=== PATIENT | male | born 1960 | race African-American/Black ===

== ENCOUNTER 2016-04-11 05:36 | Inpatient (IN) ==
[~2016-04-11 05:36] MED LIST: *HR* LORazepam 1 MG TABLET ONE; *HR* LORazepam 1 MG TABLET PO ONE
--- NOTE | 2016-04-11 05:43 | Emergency Department Note ---
Disposition Clinical Impression: Suicidal ideation Depression Qualifiers: Depression Type: unspecified Qualified Code(s): F32.9 - Major depressive disorder, single episode, unspecified Disposition: Admitted As Inpatient Condition: Fair Time of Disposition: 06:20 Psych HPI - General Stated Complaint: general Time Seen by Provider: 04/11/16 05:40 Source: patient, EMS Mode of arrival: EMS Limitations: no limitations Nursing Notes Reviewed: Yes Vital Signs Reviewed: Yes - History of Present Illness HPI Narrative: 56 old male with past medical history of depression, diabetes, hypercholesterolemia presents with poorly controlled psychiatric disease with suicidal thoughts over the last 2-3 days. He states that he got into an argument with another patient at his psychiatric meeting this week, and since then his depression has been out of control. He has not taken his medicine as he supposed to. He is hearing voices that tell him to harm himself. He has been using crack cocaine as well as alcohol. He has a gun at home and has thought about using it to kill himself. He is also considered hanging himself with a rope that he has a home. He denies thoughts of harming others. He denies recent illness or injury. He denies fever, headache, neck stiffness, chest pain or shortness of breath, GI or symptoms, rashes or edema. Pt complaint: suicidal ideation - Related Data Allergies Allergy/AdvReac Type Severity Reaction Status Date / Time No Known Allergies Allergy Verified 04/11/16 06:09 All systems ED: reviewed and negative except as stated. Past Medical History - Past Medical History Attestation: Yes The following information was validated with the patient. Source: patient Medical history: Reports: diabetes Psychiatric history: Reports: depression Physical Exam - Head Head exam: atraumatic, normocephalic, normal inspection - Eye Eye exam: Present: normal appearance, PERRL, EOMI - ENT ENT exam: normal exam, normal oropharynx, mucous membranes moist - Neck Neck exam: Present: normal inspection, full ROM, trachea midline - Chest Chest inspection: Present: normal inspection, symmetric chest wall rise - Respiratory Respiratory exam: Clear to auscultation bilaterally without wheezes rales or rhonchi Cardiovascular Cardiovascular exam: Present: regular rate, normal rhythm, normal heart sounds - Abdominal Exam Abdominal exam: Present: soft, Non-Tender. Absent: tenderness, distention, guarding, rebound, rigidity - Extremities Exam Extremities exam: Present: normal inspection, full ROM - Expanded Lower Extremity Exam Hip/Pelvis exam: Present: normal inspection, full ROM - Back Exam Back exam: Present: normal inspection, full ROM. Absent: tenderness, CVA tenderness (R), CVA tenderness (L) - Neurological Exam Neurological exam: Present: alert, oriented X3, CN II-XII intact - Psychiatric Psychiatric exam: Anxious - Skin Skin exam: Present: warm, dry, intact, normal color Course - Reevaluation(s) Reevaluation #1: Labs reviewed. We called multiple NH psych facilities, and none of them have open beds. We are obtaining paperwork from the NH to allow us to admit the patient to our inpatient psych facility. He is going to be evaluated by [facility]A here at this time. Time: 06:20 Reevaluation #2: Awaiting evaluation by psychiatric nurse. I anticipate admission to psychiatric unit after evaluation. Patient will be followed by oncoming resident Dr. Hyman. Time: 06:46 Vital Signs Respiratory Rate 16 04/11/16 08:33 Blood Pressure 142/94 04/11/16 08:33 Respiratory Rate 16 04/11/16 08:33 Blood Pressure 142/94 04/11/16 08:33 Oxygen Delivery Oxygen Delivery Room Air Psych - Lab Data Result diagrams: 04/11/16 04:30 Lab Results 04/11/16 04/11/16 04/11/16 Range/Units 04:06 04:30 04:30 Sodium (136-145) mEq/L Potassium (3.5-4.5) mEq/L Chloride (98-109) mEq/L Carbon Dioxide (19-29) mEq/L BUN (8-26) mg/dL Creatinine (0.72-1.25) mg/dL Est GFR ( Amer) (> 60) Est GFR (Non-Af Amer) (> 60) BUN/Creatinine Ratio (6-26) Glucose (70-99) mg/dL POC Glucose 120 H (58-89) Calculated Osmolality (280-300) Calcium (8.6-10.8) mg/dL Total Bilirubin (0.2-1.2) mg/dL Direct Bilirubin (0.0-0.5) mg/dL Indirect Bilirubin (0.0-1.2) mg/dL AST (5-34) Units/L ALT (0-55) Units/L Alkaline Phosphatase (38-126) Units/L Serum Total Protein (6.0-8.3) g/dL Albumin (3.5-5.0) g/dL Globulin (2.4-3.5) g/dL Albumin/Globulin Ratio (1.1-2.2) Urine Color Yellow (Yellow) Urine Clarity Clear (Clear) Urine pH 5.5 (5.0-8.0) pH Units Ur Specific [place] 1.025 (1.010-1.025) Urine Protein 30 H (Neg-Trace) mg/dL Urine Glucose (UA) Normal (Normal) mg/dL Urine Ketones Trace H (Negative) mg/dL Urine Blood Negative (Negative) Urine Nitrite Negative (Negative) Urine Bilirubin Negative (Negative) Urine Urobilinogen Normal (Normal) mg/dL Ur Leukocyte Esterase Negative (Negative) Urine Microscopic WBC 0-3 (0-3) per hpf Ur Squamous Epith Cells Few (None-Few) per lpf Urine Bacteria Few (None-Few) per hpf Urine Mucus Few (Few) Ur Culture Indicated? NO (NO) Salicylates (15-30) mg/dL Urine Opiates Screen Negative (Rhkbhv=251) ng/mL Acetaminophen (10-30) mcg/mL Ur Barbiturates Screen Negative (Gnjxtq=724) ng/mL Ur Phencyclidine Scrn Negative (Cutoff=25) ng/mL Ur Amphetamines Screen Negative (Dtbrax=7328) ng/mL U Benzodiazepines Scrn Negative (Klksed=595) ng/mL Urine Cocaine Screen Positive H (Cutoff= 300) ng/mL U Marijuana (THC) Screen Positive H (Cutoff = 50) ng/mL Ethyl Alcohol (0-10) mg/dL 04/11/16 Range/Units 04:30 Sodium 137 (136-145) mEq/L Potassium 4.0 (3.5-4.5) mEq/L Chloride 104 (98-109) mEq/L Carbon Dioxide 21 (19-29) mEq/L BUN 10 (8-26) mg/dL Creatinine 0.85 (0.72-1.25) mg/dL Est GFR ( Amer) > 60 (> 60) Est GFR (Non-Af Amer) > 60 (> 60) BUN/Creatinine Ratio 12 (6-26) Glucose 116 H (70-99) mg/dL POC Glucose (58-89) Calculated Osmolality 284 (280-300) Calcium 9.2 (8.6-10.8) mg/dL Total Bilirubin 0.4 (0.2-1.2) mg/dL Direct Bilirubin 0.2 (0.0-0.5) mg/dL Indirect Bilirubin 0.2 (0.0-1.2) mg/dL AST 17 (5-34) Units/L ALT 17 (0-55) Units/L Alkaline Phosphatase 71 (38-126) Units/L Serum Total Protein 8.1 (6.0-8.3) g/dL Albumin 4.0 (3.5-5.0) g/dL Globulin 4.1 H (2.4-3.5) g/dL Albumin/Globulin Ratio 1.0 L (1.1-2.2) Urine Color (Yellow) Urine Clarity (Clear) Urine pH (5.0-8.0) pH Units Ur Specific [place] (1.010-1.025) Urine Protein (Neg-Trace) mg/dL Urine Glucose (UA) (Normal) mg/dL Urine Ketones (Negative) mg/dL Urine Blood (Negative) Urine Nitrite (Negative) Urine Bilirubin (Negative) Urine Urobilinogen (Normal) mg/dL Ur Leukocyte Esterase (Negative) Urine Microscopic WBC (0-3) per hpf Ur Squamous Epith Cells (None-Few) per lpf Urine Bacteria (None-Few) per hpf Urine Mucus (Few) Ur Culture Indicated? (NO) Salicylates < 5.0 L (15-30) mg/dL Urine Opiates Screen ([place]=196) ng/mL Acetaminophen < 1.0 L (10-30) mcg/mL Ur Barbiturates Screen (Ahtqyz=962) ng/mL Ur Phencyclidine Scrn (Cutoff=25) ng/mL Ur Amphetamines Screen (Exuikj=1920) ng/mL U Benzodiazepines Scrn (Fwqftg=337) ng/mL Urine Cocaine Screen (Cutoff= 300) ng/mL U Marijuana (THC) Screen (Cutoff = 50) ng/mL Ethyl Alcohol < 10 (0-10) mg/dL Psychiatric Medical Clearance - Medical Clearance Checklist Medical History: No Social History Section defined Current Vitals: Last Vital Signs Resp 16 04/11/16 08:33 BP 142/94 04/11/16 08:33 Psychiatric Lab Panel: Drug Levels and Toxicity 04/11/16 04/11/16 04:30 04:30 Urine Opiates Screen Negative Acetaminophen < 1.0 L Ur Barbiturates Screen Negative Ur Phencyclidine Scrn Negative Ur Amphetamines Screen Negative U Benzodiazepines Scrn Negative Urine Cocaine Screen Positive H U Marijuana (THC) Screen Positive H Ethyl Alcohol < 10 Abnormal Labs: Abnormal lab results Glucose 116 mg/dL (70-99) H 04/11/16 04:30 POC Glucose 120 (58-89) H 04/11/16 04:06 Globulin 4.1 g/dL (2.4-3.5) H 04/11/16 04:30 Albumin/Globulin Ratio 1.0 (1.1-2.2) L 04/11/16 04:30 Urine Protein 30 mg/dL (Neg-Trace) H 04/11/16 04:30 Urine Ketones Trace mg/dL (Negative) H 04/11/16 04:30 Salicylates < 5.0 mg/dL (15-30) L 04/11/16 04:30 Acetaminophen < 1.0 mcg/mL (10-30) L 04/11/16 04:30 Urine Cocaine Screen Positive ng/mL (Cutoff= 300) H 04/11/16 04:30 U Marijuana (THC) Screen Positive ng/mL (Cutoff = 50) H 04/11/16 04:30 Attestation Statement - Attestation Attestation: I examined this patient and my medical decision-making was reviewed with the Resident Physician. I agree with the documented findings, disposition and treatment plan as described except to the extent set forth below. High-risk pt - suicidal ideation/intent with access to firearms, alcohol/ cocaine abuse, prior h/o attempts, psychotic features, middle-aged male. [place] slipped, will required admission. Medicated orally in ED.
[2016-04-11 07:32] LABS: Acetaminophen < 1.0 mcg/mL (10-30); Alanine Aminotransferase 17 Units/L (0-55); Alkaline Phosphatase 71 Units/L (38-126); Aspartate Amino Transferase 17 Units/L (5-34); BUN/Creatinine Ratio 12 (6-26); Bilirubin,Direct 0.2 mg/dL (0.0-0.5); Bilirubin,Indirect 0.2 mg/dL (0.0-1.2); Bilirubin,Total 0.4 mg/dL (0.2-1.2); Blood Urea Nitrogen 10 mg/dL (8-26); Calcium 9.2 mg/dL (8.6-10.8); Carbon Dioxide 21 mEq/L (19-29); Chloride 104 mEq/L (98-109); Ethanol < 10 mg/dL (0-10); Globulin 4.1 g/dL (2.4-3.5); Glucose 116 mg/dL (70-99); Osmolality,Calculated 284 (280-300); Salicylate < 5.0 mg/dL (15-30); Sodium 137 mEq/L (136-145); Total Protein 8.1 g/dL (6.0-8.3); eGFR For African Americans > 60 (> 60); eGFR For Non-African Americans > 60 (> 60)
[2016-04-11 07:48] LABS: Benzodiazepines Screen,Urine Negative ng/mL (Cutoff=200)
[2016-04-11 07:49] LABS: Amphetamine Screen,Urine Negative ng/mL (Cutoff=1000); Barbiturate Screen,Urine Negative ng/mL (Cutoff=200); Cannabinoid Screen,Urine Positive ng/mL (Cutoff = 50); Cocaine Screen,Urine Positive ng/mL (Cutoff= 300); Opiate Screen,Urine Negative ng/mL (Cutoff=300); Phencyclidine Screen,Urine Negative ng/mL (Cutoff=25)
[2016-04-11 07:51] LABS: Bilirubin,Urine Negative (Negative); Clarity,Urine Clear (Clear); Color,Urine Yellow (Yellow); Glucose,Urine (UA) Normal (Normal)
[2016-04-11 07:52] LABS: Blood,Urine Negative (Negative); Ketones,Urine Trace mg/dL (Negative); Leukocyte Esterase,Urine Negative (Negative); Nitrite,Urine Negative (Negative); PH,Urine 5.5 pH Units (5.0-8.0); Protein,Urine 30 mg/dL (Neg-Trace); Specific Gravity,Urine 1.025 (1.010-1.025); Urobilinogen,Urine Normal (Normal); WBC,Urine 0-3 per hpf (0-3)
[2016-04-11 07:53] LABS: Bacteria,Urine Few per hpf (None-Few); Mucus,Urine Few (Few); Squamous Epithelial Cell,Urine Few per lpf (None-Few)
--- NOTE | 2016-04-11 08:27 | Emergency Department Note ---
Disposition Clinical Impression: Suicidal ideation Depression Qualifiers: Depression Type: unspecified Qualified Code(s): F32.9 - Major depressive disorder, single episode, unspecified Disposition: Admitted As Inpatient Condition: Fair Referrals: NO,PCP [Primary Care Provider] - Time of Disposition: 08:27 Psych HPI - General Chief Complaint: ED Psychiatric Symptoms Stated Complaint: SI Time Seen by Provider: 04/11/16 05:40 Source: patient, EMS Mode of arrival: EMS - Related Data Allergies Allergy/AdvReac Type Severity Reaction Status Date / Time No Known Allergies Allergy Verified 04/11/16 06:09 Past Medical History - Past Medical History Medical history: Reports: diabetes Psychiatric history: Reports: depression Physical Exam - General Limitations: no limitations Course - Reevaluation(s) Reevaluation #1: Admitted to 1[facility]. Onward slip filled out. Time: 08:27 Psych - Lab Data Result diagrams: 04/11/16 04:30 Lab Results 04/11/16 04/11/16 04/11/16 Range/Units 04:30 04:30 04:30 Sodium 137 (136-145) mEq/L Potassium 4.0 (3.5-4.5) mEq/L Chloride 104 (98-109) mEq/L Carbon Dioxide 21 (19-29) mEq/L BUN 10 (8-26) mg/dL Creatinine 0.85 (0.72-1.25) mg/dL Est GFR ( Amer) > 60 (> 60) Est GFR (Non-Af Amer) > 60 (> 60) BUN/Creatinine Ratio 12 (6-26) Glucose 116 H (70-99) mg/dL Calculated Osmolality 284 (280-300) Calcium 9.2 (8.6-10.8) mg/dL Total Bilirubin 0.4 (0.2-1.2) mg/dL Direct Bilirubin 0.2 (0.0-0.5) mg/dL Indirect Bilirubin 0.2 (0.0-1.2) mg/dL AST 17 (5-34) Units/L ALT 17 (0-55) Units/L Alkaline Phosphatase 71 (38-126) Units/L Serum Total Protein 8.1 (6.0-8.3) g/dL Albumin 4.0 (3.5-5.0) g/dL Globulin 4.1 H (2.4-3.5) g/dL Albumin/Globulin Ratio 1.0 L (1.1-2.2) Urine Color Yellow (Yellow) Urine Clarity Clear (Clear) Urine pH 5.5 (5.0-8.0) pH Units Ur Specific [place] 1.025 (1.010-1.025) Urine Protein 30 H (Neg-Trace) mg/dL Urine Glucose (UA) Normal (Normal) mg/dL Urine Ketones Trace H (Negative) mg/dL Urine Blood Negative (Negative) Urine Nitrite Negative (Negative) Urine Bilirubin Negative (Negative) Urine Urobilinogen Normal (Normal) mg/dL Ur Leukocyte Esterase Negative (Negative) Urine Microscopic WBC 0-3 (0-3) per hpf Ur Squamous Epith Cells Few (None-Few) per lpf Urine Bacteria Few (None-Few) per hpf Urine Mucus Few (Few) Ur Culture Indicated? NO (NO) Salicylates < 5.0 L (15-30) mg/dL Urine Opiates Screen Negative (Ufpzdw=658) ng/mL Acetaminophen < 1.0 L (10-30) mcg/mL Ur Barbiturates Screen Negative (Cfxrvb=521) ng/mL Ur Phencyclidine Scrn Negative (Cutoff=25) ng/mL Ur Amphetamines Screen Negative (Kfbhqi=5595) ng/mL U Benzodiazepines Scrn Negative (Nwrxky=697) ng/mL Urine Cocaine Screen Positive H (Cutoff= 300) ng/mL U Marijuana (THC) Screen Positive H (Cutoff = 50) ng/mL Ethyl Alcohol < 10 (0-10) mg/dL Psychiatric Medical Clearance - Medical Clearance Checklist Medical History: No Social History Section defined Psychiatric Lab Panel: Drug Levels and Toxicity 04/11/16 04/11/16 04:30 04:30 Urine Opiates Screen Negative Acetaminophen < 1.0 L Ur Barbiturates Screen Negative Ur Phencyclidine Scrn Negative Ur Amphetamines Screen Negative U Benzodiazepines Scrn Negative Urine Cocaine Screen Positive H U Marijuana (THC) Screen Positive H Ethyl Alcohol < 10 Abnormal Labs: Abnormal lab results Glucose 116 mg/dL (70-99) H 04/11/16 04:30 Globulin 4.1 g/dL (2.4-3.5) H 04/11/16 04:30 Albumin/Globulin Ratio 1.0 (1.1-2.2) L 04/11/16 04:30 Urine Protein 30 mg/dL (Neg-Trace) H 04/11/16 04:30 Urine Ketones Trace mg/dL (Negative) H 04/11/16 04:30 Salicylates < 5.0 mg/dL (15-30) L 04/11/16 04:30 Acetaminophen < 1.0 mcg/mL (10-30) L 04/11/16 04:30 Urine Cocaine Screen Positive ng/mL (Cutoff= 300) H 04/11/16 04:30 U Marijuana (THC) Screen Positive ng/mL (Cutoff = 50) H 04/11/16 04:30 Statement of Medical Clearance: I have evaluated the patient, reviewed diagnostic information, and certify that the patient's medical condition is sufficiently stable that transfer to the psychiatric unit does not pose a significant risk of deterioration.
--- NOTE | 2016-04-11 15:34 | Psychiatry History & Physical ---
Date of Encounter: 04/12/16 Time of Encounter: 15:32 History of Present Illness Patient Stated Chief Complaint: Suicidal Medicare Admission Attestation: For traditional Medicare patients the provided hospital inpatient services are reasonable and necessary and in the case of services not specified as inpatient -only under 42 CFR 419.22 (n), that they are appropriately provided as inpatient services in accordance 42 CFR 412.3. For Critical Access Hospital the patient may reasonably be expected to be discharged or transferred to a hospital within 96 hours after admission to the Critical Access Hospital. Admitted From: Emergency Dept History of Present Illness: Mr. Pope is a 56 year old male admitted from the emergency room where he presented as suicidal ideation and depression patient also was intoxicated with cocaine marijuana and benzodiazepine and alcohol. Patient has long history of depression and PTSD and treatment at the [facility] where he is followed by psychiatrists and therapists. Stressors are poor adjustment to his current living situation in [place] have no family or friends in this area. Patient is retired on disability he has significant medical history including diabetes. Patient described suicidal thoughts and hopelessness and also has not been compliant with his medication for the last several months. Past Med Surg Social Fam HX - Past Medical History Medical history: diabetes - Past Psychiatric History Psychiatric history: Reports: depression, PTSD, schizophrenia, previous psychiatric hospitalization Past psychiatric history details: [facility] Medications & Allergies Atorvastatin [Lipitor] 40 mg PO HS 04/11/16 [History] Brimonidine 0.2% [Alphagan] 1 drop RIGHT EYE BID 04/11/16 [History] Lurasidone HCl [Latuda] 60 mg PO DAILY 04/11/16 [History] Melatonin [Melatin] 9 mg PO HS PRN 04/11/16 [History] Metformin HCl [Metformin HCl ER] 1,000 mg PO QPM 04/11/16 [History] Terazosin [Hytrin] 7 mg PO HS 04/11/16 [History] Allergies No Known Allergies Allergy (Verified 04/11/16 06:09) Review of Systems Psychiatric: Reports: depression, suicidal ideation, auditory hallucinations, visual hallucinations, hopelessness Mental Status Exam Patient orientation: Yes Person, Yes Time, Yes Place Level of alertness: Alert Patient appearance: Unkempt, Disheveled Behavior: nervous, anxious, restless Psychomotor activity: Increased Eye contact: Maintains Eye Contact Mood description: Depressed, Anxious, Labile Affect description: constricted, dysphoric, anxious Speech pattern: Normal rate, Normal rhythm, Normal tone, Appropriate Speech volume: Normal Thought process: Linear, Goal Oriented Thought content: Yes Suicidal ideation, Yes Nihilistic delusion, Yes Obsessive thoughts Perceptual disturbances: Yes Auditory hallucinations, Yes Visual hallucinations Attention span: Unable to Focus Memory description: Grossly Intact Patient reliability: Reliable Historian Intelligence estimate: Average Judgment: Limited Insight: Partial Results - Vital Signs Vital signs: Resp BP 16 142/94 04/11/16 08:33 04/11/16 08:33 - Labs Labs: Laboratory Last Values Sodium 137 mEq/L (136-145) 04/11/16 04:30 Potassium 4.0 mEq/L (3.5-4.5) 04/11/16 04:30 Chloride 104 mEq/L (98-109) 04/11/16 04:30 Carbon Dioxide 21 mEq/L (19-29) 04/11/16 04:30 BUN 10 mg/dL (8-26) 04/11/16 04:30 Creatinine 0.85 mg/dL (0.72-1.25) 04/11/16 04:30 Est GFR ( Amer) > 60 (> 60) 04/11/16 04:30 Est GFR (Non-Af Amer) > 60 (> 60) 04/11/16 04:30 BUN/Creatinine Ratio 12 (6-26) 04/11/16 04:30 Glucose 116 mg/dL (70-99) H 04/11/16 04:30 Calculated Osmolality 284 (280-300) 04/11/16 04:30 Calcium 9.2 mg/dL (8.6-10.8) 04/11/16 04:30 Total Bilirubin 0.4 mg/dL (0.2-1.2) 04/11/16 04:30 Direct Bilirubin 0.2 mg/dL (0.0-0.5) 04/11/16 04:30 Indirect Bilirubin 0.2 mg/dL (0.0-1.2) 04/11/16 04:30 AST 17 Units/L (5-34) 04/11/16 04:30 ALT 17 Units/L (0-55) 04/11/16 04:30 Alkaline Phosphatase 71 Units/L (38-126) 04/11/16 04:30 Serum Total Protein 8.1 g/dL (6.0-8.3) 04/11/16 04:30 Albumin 4.0 g/dL (3.5-5.0) 04/11/16 04:30 Globulin 4.1 g/dL (2.4-3.5) H 04/11/16 04:30 Albumin/Globulin Ratio 1.0 (1.1-2.2) L 04/11/16 04:30 Urine Color Yellow (Yellow) 04/11/16 04:30 Urine Clarity Clear (Clear) 04/11/16 04:30 Urine pH 5.5 pH Units (5.0-8.0) 04/11/16 04:30 Ur Specific [place] 1.025 (1.010-1.025) 04/11/16 04:30 Urine Protein 30 mg/dL (Neg-Trace) H 04/11/16 04:30 Urine Glucose (UA) Normal mg/dL (Normal) 04/11/16 04:30 Urine Ketones Trace mg/dL (Negative) H 04/11/16 04:30 Urine Blood Negative (Negative) 04/11/16 04:30 Urine Nitrite Negative (Negative) 04/11/16 04:30 Urine Bilirubin Negative (Negative) 04/11/16 04:30 Urine Urobilinogen Normal mg/dL (Normal) 04/11/16 04:30 Ur Leukocyte Esterase Negative (Negative) 04/11/16 04:30 Urine Microscopic WBC 0-3 per hpf (0-3) 04/11/16 04:30 Ur Squamous Epith Cells Few per lpf (None-Few) 04/11/16 04:30 Urine Bacteria Few per hpf (None-Few) 04/11/16 04:30 Urine Mucus Few (Few) 04/11/16 04:30 Ur Culture Indicated? NO (NO) 04/11/16 04:30 Salicylates < 5.0 mg/dL (15-30) L 04/11/16 04:30 Urine Opiates Screen Negative ng/mL (Smpzqe=431) 04/11/16 04:30 Acetaminophen < 1.0 mcg/mL (10-30) L 04/11/16 04:30 Ur Barbiturates Screen Negative ng/mL (Yfgbwl=064) 04/11/16 04:30 Ur Phencyclidine Scrn Negative ng/mL (Cutoff=25) 04/11/16 04:30 Ur Amphetamines Screen Negative ng/mL (Estuni=2151) 04/11/16 04:30 U Benzodiazepines Scrn Negative ng/mL (Sqwoaq=041) 04/11/16 04:30 Urine Cocaine Screen Positive ng/mL (Cutoff= 300) H 04/11/16 04:30 U Marijuana (THC) Screen Positive ng/mL (Cutoff = 50) H 04/11/16 04:30 Ethyl Alcohol < 10 mg/dL (0-10) 04/11/16 04:30 Assessment and Plan (1) Major depression, recurrent Current visit: Yes Status: Acute Plan: Admit inpatient for safety and stabilization, Close observation, Suicide Precautions per unit protocol, Encourage participation in unit milieu, Group Therapy, Monitor sleep, Monitor appetite Additional Plan: will increase Latuda from 60 mg to 80 mg daily and add Paxil 30 mg daily. Benefits and side effects were discussed with the patient is agreeable. Risks, benefits, side effects, alternatives discussed w/pt: Yes Patient agreeable to treatment: Yes Estimated Length of Stay (Days): 5 Qualifiers: Active/Remission status: currently active Major depression episode severity : severe Psychotic features: with psychotic features Qualified Code(s): F33.3 - Major depressive disorder, recurrent, severe with psychotic symptoms (2) Chronic post-traumatic stress disorder (PTSD) Current visit: Yes Status: Acute Plan: Admit inpatient for safety and stabilization, Close observation, Suicide Precautions per unit protocol, Encourage participation in unit milieu, Group Therapy, Monitor sleep, Monitor appetite Risks, benefits, side effects, alternatives discussed w/pt: Yes Patient agreeable to treatment: Yes (3) Cocaine abuse Current visit: Yes Status: Acute Plan: Admit inpatient for safety and stabilization, Close observation, Suicide Precautions per unit protocol, Encourage participation in unit milieu, Group Therapy, Monitor sleep, Monitor appetite Risks, benefits, side effects, alternatives discussed w/pt: Yes Patient agreeable to treatment: Yes
[2016-04-11] MEDS: Nicotine 2 MG GUM BC PRN (15:45)
[2016-04-11] MEDS ORDERED: MOM Conc 10 ML UD.LIQ PO PRN (17:05)
[2016-04-11] MEDS ORDERED: Haloperidol Lactate 5 MG/ML VIAL IM PRN (17:05)
[2016-04-11] MEDS ORDERED: *HR* LORazepam 2 MG/ML VIAL IM PRN (17:05)
[2016-04-11] MEDS ORDERED: Acetaminophen 325 MG TABLET PO PRN (17:05)
[2016-04-11] MEDS ORDERED: hydrOXYzine pamoate 25 MG CAPSULE PO PRN (17:05)
[2016-04-11] MEDS ORDERED: Mag Hydrox/Al Hydrox/Simeth 30 ML UDC PO PRN (17:05)
[2016-04-11] MEDS: *HR* Metformin 500 MG TABLET PO SCH ×2 (18:00→21:29)
[2016-04-11] MEDS: *HR* LORazepam 1 MG TABLET PO PRN (18:00)
[2016-04-11] MEDS ORDERED: NON-FORMULARY MEDICATION 1 EACH EACH (Metformin Hcl [Metformin Hcl Er] 1,000 MG) PO SCH (18:00)
[2016-04-11] MEDS: traZODone 50 MG TABLET PO PRN (21:29)
[2016-04-12] MEDS: *HR* Metformin 500 MG TABLET PO SCH ×2 (08:30→21:04)
--- NOTE | 2016-04-12 13:19 | Psychiatry Progress Note ---
Date of Encounter: 04/12/16 Time of Encounter: 13:32 Subjective Interval history: Patient is seen for follow-up. Since the ages uncooperative and irritable and focused on going back to the [place] [facility] and social workers trying to soon as it is. Otherwise patient medication was started and adjusted and he continued to display hallucination internally stimulated and continue to be monitored. Review of Systems Psychiatric: Reports: depression, suicidal ideation, auditory hallucinations, visual hallucinations, hopelessness Objective: Exam Patient orientation: Yes Person, Yes Time, Yes Place Level of alertness: Alert Patient appearance: Unkempt, Disheveled Behavior: nervous, anxious, restless Psychomotor activity: Increased Eye contact: Maintains Eye Contact Mood description: Depressed, Anxious, Labile Affect description: constricted, dysphoric, anxious Speech pattern: Normal rate, Normal rhythm, Normal tone, Appropriate Speech volume: Normal Thought process: Linear, Goal Oriented Thought content: Yes Suicidal ideation, Yes Nihilistic delusion, Yes Obsessive thoughts Perceptual disturbances: Yes Auditory hallucinations, Yes Visual hallucinations Judgment: Limited Insight: Partial Results - Vital Signs Vital Signs: Temp Pulse Resp BP 98.8 F 80 18 120/87 04/12/16 09:00 04/12/16 09:00 04/12/16 09:00 04/12/16 09:00 - Labs Labs: Laboratory Results - last 24 hr 04/12/16 07:03 POC Glucose 102 H Assessment and Plan (1) Major depression, recurrent Current visit: Yes Status: Acute Plan: Continue hospitalization, Close observation, Suicide Precautions per unit protocol, Encourage participation in unit milieu, Group Therapy, Monitor sleep, Monitor appetite Risks, benefits, side effects, alternatives discussed w/pt: Yes Patient agreeable to treatment: Yes Qualifiers: Active/Remission status: currently active Major depression episode severity : severe Psychotic features: with psychotic features Qualified Code(s): F33.3 - Major depressive disorder, recurrent, severe with psychotic symptoms (2) Chronic post-traumatic stress disorder (PTSD) Current visit: Yes Status: Acute Plan: Continue hospitalization, Close observation, Suicide Precautions per unit protocol, Encourage participation in unit milieu, Group Therapy, Monitor sleep, Monitor appetite Risks, benefits, side effects, alternatives discussed w/pt: Yes Patient agreeable to treatment: Yes (3) Cocaine abuse Current visit: Yes Status: Acute Plan: Continue hospitalization, Close observation, Suicide Precautions per unit protocol, Encourage participation in unit milieu, Group Therapy, Monitor sleep, Monitor appetite Risks, benefits, side effects, alternatives discussed w/pt: Yes Patient agreeable to treatment: Yes Consult Discharge Plan - Plan Referrals: [facility] [Outside] (You will resume daily groups on discharge. Your follow-up appointment with the psychiatrist will be scheduled by [facility] staff closer to the time of your discharge from the [facility] inpatient unit.)
[2016-04-12] MEDS: *HR* LORazepam 1 MG TABLET PO PRN (14:32)
[2016-04-12] MEDS: Nicotine 2 MG GUM BC PRN (14:38)
[2016-04-12] MEDS: traZODone 50 MG TABLET PO PRN (21:06)
[2016-04-13] MEDS: *HR* Metformin 500 MG TABLET PO SCH ×2 (08:04→21:10)
[2016-04-13] MEDS: Nicotine 2 MG GUM BC PRN (12:11)
--- NOTE | 2016-04-13 12:46 | Psychiatry Progress Note ---
Date of Encounter: 04/13/16 Time of Encounter: 09:20 Subjective Interval history: Patient seen today for follow-up of depression with psychotic features as well as anxiety and cocaine abuse. Patient is extraordinarily irritable with this provider but does report continued suicidal ideations with a plan that he "does not want to talk about." He is aware that he will be transferred to the NH when there is a bed available. Patient is withdrawn to his room and does not interact much with peers and staff. He denies auditory or visual hallucinations and does not appear to be responding during the interview. He does report feeling agitated but this may be related to his drug use. Review of Systems Constitutional: Denies: fever, chills, weakness, weight change Eyes: Denies: eye pain, vision change Ears, Nose, Throat: Denies: ear pain, throat pain, dental pain, hearing loss, congestion Cardiovascular: Denies: chest pain, palpitations, dyspnea on exertion Respiratory: Denies: cough, dyspnea, wheezes Gastrointestinal: Denies: abdominal pain, nausea, vomiting, diarrhea, constipation Musculoskeletal: Denies: joint swelling, joint pain Neurological: Denies: headache, weakness, numbness, memory loss Psychiatric: Reports: depression, anxiety, abnormal sleep pattern, suicidal ideation, difficulty concentrating, hopelessness, irritability, mood swings Objective: Exam Patient orientation: Yes Person, Yes Time, Yes Place Level of alertness: Alert Patient appearance: Unkempt, Disheveled Behavior: nervous, anxious, restless Psychomotor activity: Increased Eye contact: Diverts Contact Mood description: Depressed, Anxious, Labile Affect description: labile, dysphoric, anxious Speech pattern: Slowed Speech volume: Normal Thought process: [place], Slowed Thinking Thought content: Yes Suicidal ideation Perceptual disturbances: No Auditory hallucinations, No Visual hallucinations Judgment: Limited Insight: Minimal Results - Vital Signs Vital Signs: Temp Pulse Resp BP 97.8 F 93 16 115/82 04/13/16 09:00 04/13/16 09:00 04/13/16 09:00 04/13/16 09:00 - Labs Labs: Laboratory Results - last 24 hr 04/13/16 07:48 POC Glucose 109 H Assessment and Plan (1) Major depression, recurrent Current visit: Yes Status: Acute Plan: Continue hospitalization, Close observation, Suicide Precautions per unit protocol, Encourage participation in unit milieu, Group Therapy, Monitor sleep, Monitor appetite Additional Plan: With daily and Paxil or increased yesterday. We will continue to monitor for any side effects but not increase medications today. Encouraged patient to leave his room and interact with peers and staff. Monitor closely for behavior issues. Risks, benefits, side effects, alternatives discussed w/pt: Yes Patient agreeable to treatment: Yes Qualifiers: Active/Remission status: currently active Major depression episode severity : severe Psychotic features: with psychotic features Qualified Code(s): F33.3 - Major depressive disorder, recurrent, severe with psychotic symptoms (2) Chronic post-traumatic stress disorder (PTSD) Current visit: Yes Status: Acute Plan: Continue hospitalization, Close observation, Suicide Precautions per unit protocol, Encourage participation in unit milieu, Group Therapy, Monitor sleep, Monitor appetite Risks, benefits, side effects, alternatives discussed w/pt: Yes Patient agreeable to treatment: Yes (3) Cocaine abuse Current visit: Yes Status: Acute Plan: Continue hospitalization, Close observation, Suicide Precautions per unit protocol, Encourage participation in unit milieu, Group Therapy, Monitor sleep, Monitor appetite Additional Plan: Encourage discontinuation of illicit drug use discussed its effect on patient's mental health. Risks, benefits, side effects, alternatives discussed w/pt: Yes Patient agreeable to treatment: Yes Consult Discharge Plan - Plan Referrals: [facility] [Outside] (You will resume daily groups on discharge. Your follow-up appointment with the psychiatrist will be scheduled by [facility] staff closer to the time of your discharge from the [facility] inpatient unit.)
[2016-04-13] MEDS: *HR* LORazepam 1 MG TABLET PO PRN ×2 (14:40→21:11)
[2016-04-13] MEDS: Melatonin 3 MG TABLET PO PRN (21:10)
[2016-04-14] MEDS: *HR* Metformin 500 MG TABLET PO SCH ×2 (09:12→20:15)
[2016-04-14] MEDS: Nicotine 2 MG GUM BC PRN ×2 (12:00→16:10)
--- NOTE | 2016-04-14 13:07 | Psychiatry Progress Note ---
Date of Encounter: 04/14/16 Time of Encounter: 12:40 Subjective Interval history: Patient is seen today for follow-up and is less irritable today. He states that he is still hearing some voices and he feels like they are harder to make out but it is still affecting his concentration. Patient is trying to leave his room more and stay out in the common areas. He does seem to have some insight that he is tendency to withdrawal as part of the problem and increases his depression and other symptoms. He reports that he slept fitfully last night. He still has intermittent suicidal ideation but no intent or plan today. He is interested in long-term treatment for his drug and alcohol issues. "The short-term programs do not really work for me." Review of Systems Psychiatric: Reports: depression, anxiety, abnormal sleep pattern, suicidal ideation, auditory hallucinations, difficulty concentrating, hopelessness, irritability, mood swings. Denies: visual hallucinations Objective: Exam Patient orientation: Yes Person, Yes Time, Yes Place Level of alertness: Alert Patient appearance: Unkempt, Disheveled Behavior: nervous, anxious, restless Psychomotor activity: Increased Eye contact: Diverts Contact Mood description: Depressed, Anxious, Labile Affect description: congruent with mood, dysphoric, anxious Speech pattern: Slowed Speech volume: Normal Thought process: [place], Slowed Thinking Thought content: Yes Suicidal ideation Perceptual disturbances: Yes Auditory hallucinations, No Visual hallucinations Judgment: Limited Insight: Partial Results - Vital Signs Vital Signs: Temp Pulse Resp BP 98.4 F 84 16 128/87 04/14/16 08:37 04/14/16 08:37 04/14/16 08:37 04/14/16 08:37 - Labs Labs: Laboratory Results - last 24 hr 04/14/16 06:36 POC Glucose 110 H Assessment and Plan (1) Major depression, recurrent Current visit: Yes Status: Acute Plan: Continue hospitalization, Close observation, Suicide Precautions per unit protocol, Encourage participation in unit milieu, Group Therapy, Monitor sleep, Monitor appetite Additional Plan: Continue with Paxil. We will increase Latuda also today. Encouraged patient to leave his room and interact with peers and staff. Monitor closely for behavior issues. Risks, benefits, side effects, alternatives discussed w/pt: Yes Patient agreeable to treatment: Yes Qualifiers: Active/Remission status: currently active Major depression episode severity : severe Psychotic features: with psychotic features Qualified Code(s): F33.3 - Major depressive disorder, recurrent, severe with psychotic symptoms (2) Chronic post-traumatic stress disorder (PTSD) Current visit: Yes Status: Acute Plan: Continue hospitalization, Close observation, Suicide Precautions per unit protocol, Encourage participation in unit milieu, Group Therapy, Monitor sleep, Monitor appetite Additional Plan: Continue current meds. Risks, benefits, side effects, alternatives discussed w/pt: Yes Patient agreeable to treatment: Yes (3) Cocaine abuse Current visit: Yes Status: Acute Plan: Continue hospitalization, Close observation, Suicide Precautions per unit protocol, Encourage participation in unit milieu, Group Therapy, Monitor sleep, Monitor appetite Additional Plan: Discussed with patient about looking into long-term treatment options through the [place]. Patient is interested in this. Risks, benefits, side effects, alternatives discussed w/pt: Yes Patient agreeable to treatment: Yes Consult Discharge Plan - Plan Referrals: [facility] [Outside] (You will resume daily groups on discharge. Your follow-up appointment with the psychiatrist will be scheduled by [facility] staff closer to the time of your discharge from the [facility] inpatient unit.)
[2016-04-14] MEDS: *HR* LORazepam 1 MG TABLET PO PRN (18:06)
[2016-04-14] MEDS ORDERED: *HR* LORazepam 1 MG TABLET PO ONE (19:41)
[2016-04-14] MEDS: traZODone 50 MG TABLET PO PRN (20:15)
[2016-04-14] MEDS: Melatonin 3 MG TABLET PO PRN (20:21)
[2016-04-15] MEDS: *HR* Metformin 500 MG TABLET PO SCH ×2 (08:22→21:10)
[2016-04-15] MEDS: Nicotine 2 MG GUM BC PRN ×3 (08:23→19:03)
[2016-04-15] MEDS: Artificial Tears SOLN 15 ML BOTTLE BOTH EYES PRN (09:37)
--- NOTE | 2016-04-15 13:37 | Psychiatry Progress Note ---
Date of Encounter: 04/15/16 Time of Encounter: 13:34 Subjective Interval history: Patient is here for follow-up. He reports better sleep but occasionally he will feel anxious. He still interested in going back to the hospital and the staff was trying to contact hospital about availble bed. He reports less auditory hallucinations and denies suicidal ideation. Denied any problem with current medications. Review of Systems Psychiatric: Reports: depression, anxiety, abnormal sleep pattern, suicidal ideation, auditory hallucinations, difficulty concentrating, hopelessness, irritability, mood swings. Denies: visual hallucinations Objective: Exam Patient orientation: Yes Person, Yes Time, Yes Place Level of alertness: Alert Patient appearance: Unkempt, Disheveled Behavior: nervous, anxious, restless Psychomotor activity: Increased Eye contact: Diverts Contact Mood description: Depressed, Anxious, Labile Affect description: congruent with mood, dysphoric, anxious Speech pattern: Slowed Speech volume: Normal Thought process: [place], Slowed Thinking Thought content: Yes Suicidal ideation Perceptual disturbances: Yes Auditory hallucinations, No Visual hallucinations Judgment: Limited Insight: Partial Results - Vital Signs Vital Signs: Temp Pulse Resp BP 97.7 F 81 16 135/86 04/15/16 08:57 04/15/16 08:57 04/15/16 08:57 04/15/16 08:57 - Labs Labs: Laboratory Results - last 24 hr 04/15/16 07:49 POC Glucose 124 H Assessment and Plan (1) Major depression, recurrent Current visit: Yes Status: Acute Plan: Continue hospitalization, Close observation, Suicide Precautions per unit protocol, Encourage participation in unit milieu, Group Therapy, Monitor sleep, Monitor appetite Risks, benefits, side effects, alternatives discussed w/pt: Yes Patient agreeable to treatment: Yes Qualifiers: Active/Remission status: currently active Major depression episode severity : severe Psychotic features: with psychotic features Qualified Code(s): F33.3 - Major depressive disorder, recurrent, severe with psychotic symptoms (2) Chronic post-traumatic stress disorder (PTSD) Current visit: Yes Status: Acute Plan: Continue hospitalization, Close observation, Suicide Precautions per unit protocol, Encourage participation in unit milieu, Group Therapy, Monitor sleep, Monitor appetite Risks, benefits, side effects, alternatives discussed w/pt: Yes Patient agreeable to treatment: Yes (3) Cocaine abuse Current visit: Yes Status: Acute Plan: Continue hospitalization, Close observation, Suicide Precautions per unit protocol, Encourage participation in unit milieu, Group Therapy, Monitor sleep, Monitor appetite Risks, benefits, side effects, alternatives discussed w/pt: Yes Patient agreeable to treatment: Yes Consult Discharge Plan - Plan Referrals: [facility] [Outside] (You will resume daily groups on discharge. Your follow-up appointment with the psychiatrist will be scheduled by [facility] staff closer to the time of your discharge from the [facility] inpatient unit.)
[2016-04-15 19:30] LABS: Basophils % 0.6 %; Eosinophils # 0.1 K/mcL (0.0-0.6); Eosinophils % 1.3 %; Hematocrit 43.3 % (37.5-50.1); Hemoglobin 13.8 g/dL (12.9-16.9); Immature Granulocytes % 0.3 % (0-4); Lymphocytes # 2.5 K/mcL (0.6-4.6); Lymphocytes % 37.7 %; Mean Corpuscular HGB Conc 31.9 g/dL (31.6-35.5); Mean Corpuscular Hemoglobin 23.7 pg (28.0-33.3); Mean Corpuscular Volume 74.3 fL (83.0-100.0); Mean Platelet Volume 11.9 fL (9.4-12.4); Monocytes # 0.7 K/mcL (0.0-1.3); Monocytes % 11.1 %; Neutrophils # 3.3 K/mcL (1.6-8.9); Platelet Count 195 K/mcL (140-400); Red Blood Count 5.83 M/mcL (4.19-5.50); Red Cell Distribution Width 15.9 % (11.5-14.5)
[2016-04-15 19:32] LABS: BUN/Creatinine Ratio 11 (6-26); Blood Urea Nitrogen 12 mg/dL (8-26); Calcium 9.2 mg/dL (8.6-10.8); Carbon Dioxide 23 mEq/L (19-29); Chloride 105 mEq/L (98-109); Glucose 97 mg/dL (70-99); Osmolality,Calculated 286 (280-300); Potassium 4.1 mEq/L (3.5-4.5); Sodium 138 mEq/L (136-145); eGFR For African Americans > 60 (> 60); eGFR For Non-African Americans > 60 (> 60)
[2016-04-15] MEDS: Melatonin 3 MG TABLET PO PRN (21:09)
[2016-04-15] MEDS: traZODone 50 MG TABLET PO PRN (21:10)
[2016-04-16] MEDS: Artificial Tears SOLN 15 ML BOTTLE BOTH EYES PRN ×2 (05:38→15:48)
[2016-04-16] MEDS: Nicotine 2 MG GUM BC PRN (05:39)
[2016-04-16 08:18] VITALS: BP 111/85
[2016-04-16] MEDS: *HR* Metformin 500 MG TABLET PO SCH (08:36)
--- NOTE | 2016-04-16 15:33 | Discharge Summary ---
Date of Encounter: 04/16/16 Time of Encounter: 15:26 Diagnosis - Discharge Diagnosis (1) Major depression, recurrent Status: Acute Qualifiers: Active/Remission status: currently active Major depression episode severity : severe Psychotic features: with psychotic features Qualified Code(s): F33.3 - Major depressive disorder, recurrent, severe with psychotic symptoms (2) Chronic post-traumatic stress disorder (PTSD) Status: Acute (3) Cocaine abuse Status: Acute Medications - Discharge Medications Atorvastatin [Lipitor] 40 mg PO HS 04/11/16 [History] Brimonidine 0.2% [Alphagan] 1 drop RIGHT EYE BID 04/11/16 [History] Melatonin [Melatin] 9 mg PO HS PRN 04/11/16 [History] Metformin HCl [Metformin HCl ER] 1,000 mg PO QPM 04/11/16 [History] Terazosin [Hytrin] 7 mg PO HS 04/11/16 [History] Lurasidone HCl [Latuda] 80 mg PO DAILY #0 04/16/16 [Rx] Paroxetine [Paxil] 30 mg PO DAILY tablet 04/16/16 [Rx] Allergies No Known Allergies Allergy (Verified 04/11/16 06:09) Results Procedures and tests throughout hospitalization: Completed Lab Orders Category Date Time Status BMP [Basic Metabolic Panel] Routine Lab 04/15/16 18:47 Completed CBC [Complete Blood Count] [HEME] Routine Lab 04/15/16 18:47 Completed Provider Date of admission: 04/11/16 08:31 Primary care physician: PCP NO Discharging clinician: Claus Fofana Assessment and Plan - Patient/Caregiver Discharge Instructions Activity: resume usual activities as tolerated Diet: regular diet - Follow up Plan Follow up with: [facility] [Outside] (You will resume daily groups on discharge. Your follow-up appointment with the psychiatrist will be scheduled by [facility] staff closer to the time of your discharge from the [facility] inpatient unit.) Functional capacity at discharge: independent ambulation Overall status at discharge: Stable Disposition: [facility] Course Hospital course: Mr. Pope is a 56 year old male admitted from the emergency room for suicidal ideation hallucinations and intoxication with cocaine and marijuana. Patient is a and follow up at the [facility] for psychiatric treatment off schizoaffective disorder bipolar. For details of admission please see H&P. On the units patient medications were reviewed and Paxil was added and Latuda was increased from 60-80 mg. Patient was initially anxious and occasionally irritable and repeatedly ask to be transferred to the [facility] where he has his care. Prior to discharge patient is medically stable and denies suicidal ideation reported less auditory hallucinations his sleep and appetite were improved. - Time Spent with Patient Total time spent providing and/or coordinating discharge services: Less than 30 minutes Quality - Multiple Antipsychotics Patient discharged on 2 or more antipsychotic medications: No Procedures - Procedures Procedures: Medication Management, Crisis Stabilization, Supportive Therapy, Group Therapy, Psychoeducational Therapy Mental Status Exam - Mental Status Exam Patient orientation: Yes Person, Yes Time, Yes Place Level of alertness: Alert Patient appearance: Appropriate Behavior: calm, cooperative, anxious, restless Psychomotor activity: Increased Eye contact: Diverts Contact Mood description: Euthymic/stable, Anxious, Labile Affect description: congruent with mood, dysphoric, anxious Speech pattern: Normal rate, Normal rhythm, Normal tone Speech Volume: Normal Thought process: [place], Slowed Thinking Thought Content: No Suicidal ideation, No Homicidal ideation, No Overt delusions Perceptual Disturbances: Yes Auditory hallucinations, No Visual hallucinations Judgment: Limited Insight: Partial
== END 2016-04-16 15:55 | DRG 885 ==
LOC: EMEROO 05:36 → 1ANU 08:31
PROVIDERS: ADMIT Psychiatry & Neurology Psychiatry; ATTEND Psychiatry & Neurology Psychiatry